=== PATIENT | female | born 1950 | race Caucasian/White ===

== ENCOUNTER → 2018-05-29 | Outpatient (CLI) | payer OTHER ==
[~2018-05-29] MED LIST: ACETAMINOPHEN-1 EAC1 PO; B-121000 MC1 SL; CALCIUM 500 +1 EAC5 PO; CENTRUM SILVER1 EAC4 PO; CINNAMON500 MG PO; D3 DOTS2000 UNIT PO; DOXYCYCLINE 10100 MG PO; HYDROCHLOROTH12.5 M1 PO; LISINOPRIL-HCT1 EACH PO; LISINOPRIL10 MG PO; LISINOPRIL20 MG PO; LOPRESSOR25 PO; METFORMIN HCL500 MG PO; NICOTINE TRANSD21 M1 TOP; PERCOCET PO; TUMS PO; XARELTO15 MG PO; XARELTO20 MG PO
== END ==
LOC: M.MRI 12:55
DX: M47.816 Spondylosis without myelopathy or radiculopathy, lumbar region (principal); M48.061 Spinal stenosis, lumbar region without neurogenic claudication; M71.38 Other bursal cyst, other site; M41.06 Infantile idiopathic scoliosis, lumbar region; M51.36 Other intervertebral disc degeneration, lumbar region

== ENCOUNTER → 2018-07-08 | Outpatient (CLI) | payer OTHER | LOC: M.RAD 08:46 | DX: Z12.31 Encounter for screening mammogram for malignant neoplasm of breast (principal); I10 Essential (primary) hypertension; E11.9 Type 2 diabetes mellitus without complications ==

== ENCOUNTER → 2019-08-11 | Outpatient (CLI) | payer OTHER ==
--- NOTE | 2019-08-11 10:25 | 2DMMODE ---
[place] [address] 2 D/M-MODE ECHOCARDIOGRAM Name: SANTOSALEXANDRA LOPEZ Room: [facility]#: [id number] Admission: 08/11/19 Attend Phys: Artie Uribe, Discharge: Date of : 48 Date of Service: 08/11/19 1025 Report #: [id number] THIS REPORT FOR: //name// APPROVED REPORT Study performed: 08/11/2019 08:43:21 EXAM: Comprehensive 2D, Doppler, and color-flow Echocardiogram Patient Location: Out-Patient BSA: 1.69 HR: 92 bpm BP: 120/60 mmHg Other Information Study Quality: Fair Indications Atrial Fibrillation 2D Dimensions IVSd: 12.06 (7-11mm) LVOT Diam: 20.33 (18-24mm) LVDd: 40.57 mm PWd: 11.22 (7-11mm) Ascending Ao: 34.23 (22-36mm) LVDs: 29.50 (25-40mm) Aortic Root: 26.02 mm Volumes Left Atrial Volume (Systole) LA ESV Index: 13.30 mL/m2 Aortic Valve AoV Peak Noah.: 1.16 m/s AO Peak Gr.: 5.39 mmHg LVOT Max P.78 mmHg AO Mean Gr.: 3.11 mmHg LVOT Mean P.17 mmHg LVOT Max V: 0.83 m/s AO V2 VTI: 19.45 cm LVOT Mean V: 0.48 m/s JIMMIE (VTI): 2.38 cm2 LVOT V1 VTI: 14.25 cm Mitral Valve E/A Ratio: 0.56 MV Decel. Time: 163.68 ms MV E Max Noah.: 0.52 m/s MV PHT: 47.47 ms MVA (PHT): 4.63 [place]2 [place] [address] 2 D/M-MODE ECHOCARDIOGRAM Name: STEPHANIE GRAHAMCARRI LOPEZ Room: [facility]#: [id number] Admission: 08/11/19 Attend Phys: Artie Uribe, Discharge: Date of : 48 Date of Service: 08/11/19 1025 Report #: [id number] TDI E/Lateral E': 5.78 E/Medial E': 7.43 Medial E' Noah.: 0.07 m/s Lateral E' Noah.: 0.09 m/s Pulmonary Valve PV Peak Noah.: 0.91 m/s PV Peak Gr.: 3.32 mmHg Tricuspid Valve RAP Estimate: 5.00 mmHg TR Peak Gr.: 16.66 mmHg RVSP: 21.66 mmHg PA Pressure: 21.66 mmHg Left Ventricle The left ventricle is normal size. There is normal LV segmental wall motion. Mild concentric left ventricular hypertrophy. Left ventricular systolic function is normal. The left ventricular ejection fraction is within the normal range. LVEF is 55-60%. Grade I - abnormal relaxation pattern. Right Ventricle The right ventricle is normal size. The right ventricular systolic function is normal. Atria The left atrium size is normal. The right atrium size is normal. Aortic Valve The aortic valve is normal in structure. No aortic regurgitation is present. There is no aortic valvular stenosis. Mitral Valve The mitral valve is normal in structure. There is no mitral valve regurgitation noted. No evidence of mitral valve stenosis. Tricuspid Valve The tricuspid valve is normal in structure. Mild tricuspid regurgitation. Pulmonic Valve The pulmonary valve is normal in structure. Mild pulmonic regurgitation[place] [address] 2 D/M-MODE ECHOCARDIOGRAM Name: ALEXANDRA GRAHAM Room: [facility]#: [id number] Admission: 08/11/19 Attend Phys: Artie Uribe, Discharge: Date of : 48 Date of Service: 08/11/19 1025 Report #: [id number] The aortic root is normal in size. IVC is normal in size and collapses >50% with inspiration. Pericardium There is no pericardial effusion. <Conclusion> Mild concentric left ventricular hypertrophy. LVEF is 55-60%. <ELECTRONICALLY SIGNED> By: Adal Parrish MD, FACC 08/11/19 1025 1025 1025 Adal Parrish MD, FACC /INF
== END ==
LOC: M.CRD 08:43
DX: I08.8 Other rheumatic multiple valve diseases (principal); I48.91 Unspecified atrial fibrillation